=== PATIENT | female | born 1950 | race African-American/Black ===

== ENCOUNTER 2017-12-28 06:01 | Day surgery (SDC) | payer OTHER ==
[2017-12-26 18:05] VITALS: BMI 32.3
[2017-12-28] MEDS ORDERED: DEXAMETHASONE SOD PHOSPHATE/PF 10 MG/ML SDV ONE (07:05)
[2017-12-28] MEDS ORDERED: BUPIVACAINE HCL/PF 0.5% (5MG/ML) 10 ML VIAL ONE (07:05)
[2017-12-28] MEDS ORDERED: MIDAZOLAM HCL 2 MG/2 ML SINGLE DOSE VIAL ONE ×2 (07:07)
[2017-12-28] MEDS ORDERED: ONDANSETRON 4 MG/2 ML VIAL IVPUSH PRN (07:11)
[2017-12-28] MEDS ORDERED: oxyCODONE HCL 5 MG TABLET PO PRN ×2 (07:11)
[2017-12-28] MEDS ORDERED: LACTATED RINGERS SOLUTION 1,000 ML IV SCH (07:15)
--- NOTE | 2017-12-28 07:36 | HP ---
[facility] - Chief Complaint Chief Complaint: LEFT SHOIULDER PAIN History Source: Patient - Past Medical History Allergies/Adverse Reactions: Allergies Allergy/AdvReac Type Severity Reaction Status Date / Time moxifloxacin HCl Allergy Intermediate Rash Verified 09/26/14 10:14 [From Avelox] meloxicam Allergy Rash Verified 09/26/14 10:14 naproxen [From Naprosyn] AdvReac DIZZINESS Verified 09/26/14 10:14 - Current Medications Current Medications: Home Medications Medication Instructions Recorded Cholecalciferol (Vitamin D3) 1,000 unit PO DAILY 09/26/14 [Vitamin D3] Fluticasone Propionate [Flovent 250 mcg IH BID 09/26/14 Diskus] Triamterene/Hydrochlorothiazid 1 each PO DAILY 09/26/14 [Dyazide 37.5-25 Capsule] Satellite Physical Exam - Physical Examination Vital Signs: Vital Signs Period Temp Pulse Resp BP Sys/Lauren Pulse Ox Last 24 Hr 98.4 F-98.4 F 81-81 20-20 133-133/76-76 96 Extremities: Other (+ IMPINGEMENT LEFT SHOULDER WITH WEAKNESS WITH TDA) [facility]ellite Impression/Plan - Impression/Plan Impression: IMPINGEMENT LEFT SHOULDER +/- RC TEAR Operative Procedure: ARTHROSCOPY LEFT SHOULDER WITH DECOMPRESSION AND POSSIBLE REPAIR RC Date to be Performed: 12/28/17
[2017-12-28] MEDS ORDERED: PROPOFOL 20 ML ONE ×2 (07:45→08:05)
[2017-12-28] MEDS ORDERED: ceFAZolin SODIUM 1 GM VIAL IVPB ONE (08:00)
[2017-12-28] MEDS ORDERED: SUCCINYLCHOLINE CHLORIDE 200 MG/10 ML VIAL ONE (08:11)
--- NOTE | 2017-12-28 08:51 | OP ---
Operative Note - Note: Operative Date: 12/28/17 ([facility]) Pre-Operative Diagnosis: left shoulder impingement Operation: left shoulder arthroscopy with SAD Post-Operative Diagnosis: Same as Pre-op Surgeon: Evelio Wayne Director [employer]: Romeo Donato Anesthesiologist/DUSTING AND BRUSHING MACHINE OPERATOR: Scarlet Jaquez Anesthesia: General, Local Specimens Removed: shavings Estimated Blood Loss (mls): 5 Operative Report Dictated: Yes
[2017-12-28] MEDS ORDERED: DEXAMETHASONE SOD PHOSPHATE 4 MG/1 ML VIAL ONE (08:53)
[2017-12-28] MEDS ORDERED: ONDANSETRON 4 MG/2 ML VIAL ONE (08:53)
[2017-12-28] MEDS ORDERED: ONDANSETRON 4 MG/2 ML VIAL IVPUSH ONE (09:00)
[2017-12-28] MEDS ORDERED: DEXAMETHASONE SOD PHOSPHATE 4 MG/1 ML VIAL IVPUSH ONE (09:10)
--- NOTE | 2017-12-28 10:46 | SPEC ---
DATE OF OPERATION: 12/28/2017 PREOPERATIVE DIAGNOSIS: Left shoulder impingement syndrome. POSTOPERATIVE DIAGNOSIS: Left shoulder impingement syndrome. PROCEDURE: Arthroscopy, left shoulder, with subacromial decompression. SURGICAL ATTENDING: Evelio Wayne MD PAINT FORMULATOR: HENOK Peterson ANESTHESIA: Regional and general. CLOSURE: Nylon 4-0. COMPLICATIONS: None. CONDITION: To recovery in stable condition. DESCRIPTION OF OPERATIVE PROCEDURE: Patient taken to the operating room on December 28, 2017. Regional and general anesthesia were administered by the anesthesiologist. IV Kefzol was administered prophylactically prior to the case. Patient was placed in the beach-chair position with all prominences well padded. Left shoulder area was prepped and draped in the usual sterile fashion. The posterior portal was made 2 fingerbreadths below the acromion first with a 15 blade followed by a blunt trocar. A circumferential exam of the glenohumeral joint revealed the following: Intact glenoid and humeral head articular cartilage, intact labrum circumferentially, intact biceps and biceps anchor, no loose bodies in the axillary pouch, intact subscapularis to its insertion, intact supra and infraspinatus and teres minor to its insertion with no obvious evidence of any tear. There was no erythema inside the shoulder either. The fluid was drained from the shoulder and the trocar was removed. The posterior trocar was redirected in the subacromial space. An accessory lateral portal was made with a 15 blade followed by a blunt trocar. A large amount of bursal tissue was encountered in the subacromial space. This was debrided using the ArthroCare device. The coracoacromial ligament was identified and detached off the anterior acromion and was visualized to drop inferiorly and was further debrided. A large subacromial spur was encountered. An acromioplasty was then performed up to the appropriate level to gain excellent height in the subacromial space. Soft tissue encompassing the humeral head was debrided using the ArthroCare and the shaver exposing healthy rotator cuff . Fluid was drained from the shoulder. The trocars were removed. The portals were closed with 3-0 nylon. A sterile pressure dressing was applied followed by a sling. Patient was awakened from anesthesia and transferred to recovery in stable condition. No complications. Estimated blood loss negligible. Rolly CEVALLOS/[id number]
[2017-12-28 11:18] VITALS: BP 132/78; PULSE 80; TEMP 97.8
== END 2017-12-28 11:15 | disposition home or self-care (01) ==
LOC: JASU-SURG 06:01
PROVIDERS: ATTEND Orthopaedic Surgery
PROC: 0RBK4ZZ Excision of Left Shoulder Joint, Percutaneous Endoscopic Approach (ICD-10-PCS; principal; 2017-12-28 07:30)
DX: M75.42 Impingement syndrome of left shoulder (principal)
CPT/HCPCS: 94760